=== PATIENT | female | born 2000 | race Caucasian/White ===

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

== ENCOUNTER 2018-01-14 13:29 | Emergency (ER) | payer MEDICAID ==
[2018-01-14] MEDS ORDERED: DIPHENHYDRAMINE HCL 50 MG CAPSULE PO ONE (14:21)
[2018-01-14] MEDS ORDERED: FAMOTIDINE 20 MG TABLET PO ONE (14:21)
--- NOTE | 2018-01-14 14:23 | ER Document Report ---
ED General - General Chief Complaint: Allergy Symptoms Stated Complaint: POSSIBLE ALLERGIC REACTION Time Seen by Provider: 01/14/18 14:17 Mode of Arrival: Ambulatory Information source: Patient Notes: 17-year-old female with no reported past medical history at approximately 20 weeks presents with complaint of the sensation of her throat swelling, coughing, sneezing and one episode of vomiting after eating 3 payday bars 2 hours prior to arrival. Patient does not have a known peanut allergy. She states that initially she was coughing consistently had auditory wheezing. She denies any rash. Patient has been receiving care. She denies any abdominal pain, vaginal bleeding. She does take vitamins. She reports an uneventful so far. TRAVEL OUTSIDE OF THE [place] IN LAST 30 DAYS: No - HPI Onset: Just prior to arrival Onset/Duration: Sudden Quality of pain: No pain Associated symptoms: Nonproductive cough, Vomiting Exacerbated by: Denies Relieved by: Denies Similar symptoms previously: No Recently seen / treated by doctor: No - Related Data Allergies/Adverse Reactions: Fish Containing Products Allergy (Verified 01/14/18 14:05) shellfish derived Allergy (Verified 01/14/18 14:05) Past Medical History - General Information source: Patient - Social History Smoking Status: Former Smoker Chew tobacco use (# tins/day): No Frequency of alcohol use: None Drug Abuse: None Lives with: Family Family History: Arthritis, CAD, CVA, DM, Hyperlipidemia, Hypertension, Malignancy, Thyroid Disfunction Patient has suicidal ideation: No Patient has homicidal ideation: No - Medical History Medical History: Negative Renal/ Medical History: Denies: Hx Peritoneal Dialysis Past Surgical History: Reports: Hx Breast Surgery - left cyst removal - Immunizations Immunizations up to date: Yes Hx Diphtheria, Pertussis, Tetanus Vaccination: Yes Review of Systems - Review of Systems Notes: REVIEW OF SYSTEMS: CONSTITUTIONAL : Denies fever, chills, or sweats. Denies recent illness. Denies weight loss, recent hospitalizations. EENT: Denies visual changes, eye pain. Denies sore throat, oral lesions, difficulty swallowing. CARDIOVASCULAR: Denies chest pain. Denies palpitations. Denies lower extremity edema. RESPIRATORY: . Denies shortness of breath, GASTROINTESTINAL: Denies abdominal pain or distention. Denies nausea, or diarrhea. Denies blood in vomitus, stools, or per rectum. Denies black, tarry stools. Denies constipation. GENITOURINARY: Denies difficulty urinating, painful urination, frequency, blood in urine, or vaginal discharge, vaginal bleeding. MUSCULOSKELETAL: Denies back or neck pain or stiffness. Denies joint pain or swelling. SKIN: Denies rash, lesions or sores. HEMATOLOGIC : Denies easy bruising or bleeding. LYMPHATIC: Denies swollen glands. NEUROLOGICAL: Denies confusion or altered mental status. Denies loss of consciousness. Denies dizziness or lightheadedness. Denies headache. Denies weakness or paralysis. Denies problems difficulty with ambulation, slurred speech. Denies sensory loss, numbness, or tingling. Denies seizures. PSYCHIATRIC: Denies anxiety or stress. Denies depression, suicidal ideation, or homicidal ideation. Denies visual or auditory hallucinations. Physical Exam - Vital signs Vitals: Temp Pulse Resp BP Pulse Ox 97.8 F 95 H 18 104/72 99 01/14/18 13:51 01/14/18 13:51 01/14/18 13:51 01/14/18 13:51 01/14/18 13:51 Interpretation: Normal - Notes Notes: PHYSICAL EXAMINATION: GENERAL: Well-appearing, well-nourished and in no acute distress. HEAD: Atraumatic, normocephalic. EYES: Pupils equal round and reactive to light, extraocular movements intact, conjunctiva are normal. ENT: Nares patent, oropharynx clear without exudates. Moist mucous membranes. Airway patent, uvula midline. NECK: Normal range of motion, supple without lymphadenopathy LUNGS: Breath sounds clear to auscultation bilaterally and equal. No wheezes rales or rhonchi. No stridor HEART: Regular rate and rhythm without murmurs ABDOMEN: Soft, nontender, nondistended abdomen. No guarding, no rebound. No masses appreciated. Female : deferred Musculoskeletal: Normal range of motion, no pitting or edema. No cyanosis. NEUROLOGICAL: Cranial nerves grossly intact. Normal speech, normal gait. Normal sensory, motor exams PSYCH: Normal mood, normal affect. SKIN: Warm, Dry, normal turgor, no rashes or lesions noted. Course - Re-evaluation Re-evalutation: 01/14/18 15:51 Patient has remained stable throughout her ED course. She has had no wheezing, coughing, vomiting or rash development. She did receive Pepcid and Benadryl. Exam and history consistent with possible allergy to peanuts. - Vital Signs Vital signs: Temp Pulse Resp BP Pulse Ox 98.2 F 93 H 18 109/67 100 01/14/18 16:42 01/14/18 16:42 01/14/18 16:42 01/14/18 16:42 01/14/18 16:42 Discharge - Discharge Clinical Impression: Peanut allergy, Second trimester Allergic reaction Qualifiers: Encounter type: initial encounter Qualified Code(s): T78.40XA - Allergy, unspecified, initial encounter Condition: Good Disposition: HOME, SELF-CARE Instructions: Acute Allergic Reaction ([facility]), Use of Diphenhydramine Additional Instructions: Your exam is consistent with an allergic reaction to peanuts. Please avoid peanuts in the future. You can safely take Benadryl and . Please take 1 tab of Benadryl every 8 hours for the next 3 days. Please return to the emergency department if you develop a rash, cough, wheezing or difficulty swallowing. Prescriptions: Diphenhydramine HCl [Benadryl] 25 mg PO Q8H #12 capsule Famotidine [Pepcid 40 mg Tablet] 40 mg PO DAILY #5 tablet Forms: Return to Work Referrals: REY ENGLISH MD [ACTIVE STAFF] - Follow up as needed
[2018-01-14] MEDS ORDERED: METOCLOPRAMIDE HCL ORAL SOLN 10 MG/10 ML UDCUP PO ONE (16:00)
[2018-01-14] MEDS ORDERED: MAG HYDROX/AL HYDROX/SIMETH SUSP 30 ML UDCUP PO ONE (16:00)
[2018-01-14] MEDS ORDERED: LIDOCAINE 2% VISCOUS SOLN 20 ML UDCUP PO ONE (16:00)
[2018-01-14 16:43] VITALS: BP 109/67
== END 2018-01-14 16:46 | disposition home or self-care (01) ==
LOC: ER 13:29
DX: O26.892 Other specified pregnancy related conditions, second trimester (principal); T78.40XA Allergy, unspecified, initial encounter; Z3A.20 20 weeks gestation of pregnancy; Z91.010 Allergy to peanuts; Z87.891 Personal history of nicotine dependence
CPT/HCPCS: 99283; J3490 ×5